=== PATIENT | female | born 1975 | race Two or more races ===

== ENCOUNTER 2018-08-28 06:00 | Day surgery (SDC) | payer OTHER ==
[2018-08-28] MEDS ORDERED: CODE1TAB37 PO (09:26)
== END 2018-08-28 12:25 | disposition home or self-care (01) ==
LOC: CIR.AMB 06:00
DX: D27.0 Benign neoplasm of right ovary (principal); D27.1 Benign neoplasm of left ovary

== ENCOUNTER → 2019-02-27 | Outpatient (CLI) | payer OTHER ==
[~2019-02-27] MED LIST: CODE1TAB37 PO
== END | disposition home or self-care (01) ==
LOC: TOM 08:30
DX: K57.30 Diverticulosis of large intestine without perforation or abscess without bleeding (principal); R10.0 Acute abdomen